=== PATIENT | female | born 1990 | race Two or more races ===

== ENCOUNTER 2018-03-04 10:31 | Emergency (ER) | payer SELFPAY ==
[2018-03-04 10:58] VITALS: BP 122/77; PULSE 93; TEMP 98.8; BMI 24.0
--- NOTE | 2018-03-04 12:29 | PDOC ---
History of Present Illness - General Chief Complaint: Ear Problem Stated Complaint: EAR PROBLEM Time Seen by Provider: 03/04/18 12:13 History Source: Patient Exam Limitations: No Limitations - History of Present Illness Initial Comments: 03/04/18 12:24 HISTORY OF PRESENT ILLNESS: 27-year-old woman who denies medical history presents emergency Department with 2 days of bilateral ear pain, sore throat, nasal congestion. Patient has been taking fluids but not any medications. Patient states the pain became increasingly worse today. She denies any discharge or hearing loss. She denies fevers, chills, chest pain, shortness of breath. No recent travel or sick contacts. PAST MEDICAL HISTORY: Denies past medical history SURGICAL HISTORY: Denies ALLERGIES: Iodine, PCN REVIEW OF SYSTEMS General/Constitutional: Denies fever or chills. Denies weakness, weight change. HEENT: Denies change in vision. Bilateral ear pain. Denies discharge. Denies hearing loss. +sore throat. +Nasal congestion. Cardiovascular: Denies chest pain or shortness of breath. Respiratory: Denies cough, wheezing, or hemoptysis. Gastrointestinal: Denies nausea, vomiting, diarrhea or constipation. Denies rectal bleeding. Genitourinary: Denies dysuria, frequency, or change in urination. Musculoskeletal: Denies joint or muscle swelling or pain. Denies neck or back pain. Skin and breasts: Denies rash or easy bruising. Neurologic: Denies headache, vertigo, loss of consciousness, or loss of sensation. Psychiatric: Denies depression or anxiety. Endocrine: Denies increased thirst. Denies abnormal weight change. Hematologic/Lymphatic: Denies anemia, easy bleeding, or history of blood clots. Allergic/Immunologic: Denies hives or skin allergy. Denies latex allergy. PHYSICAL EXAM General Appearance: Well-appearing, appropriately dressed. No apparent distress , no intoxication. HEENT: EOMI, PERRLA, normal voice. No conjunctival pallor. No photophobia, scleral icterus. TM with retractions bilaterally. Cobblestoning in the posterior OP. Neck: Supple. Trachea midline. No tenderness, rigidity, carotid bruit, stridor , lymphadenopathy, or thyromegaly. Respiratory/Chest: Lungs CTAB. No shortness of breath, chest tenderness, respiratory distress, accessory muscle use. No crackles, rales, rhonchi, stridor , wheezing, dullness Cardiovascular: RRR. S1, S2. No JVD, murmur, bradycardia, tachycardia. Vascular Pulses: Dorsalis-Pedis (R): 2+, Dorsalis-Pedis (L): 2+ Gastrointestinal/Abdominal: Normal bowel sounds. Abdomen soft, non-distended. No tenderness or rebound tenderness. No organomegaly, pulsatile mass, guarding, hernia, hepatomegaly, splenomegaly. Lymphatic: No adenopathy, tenderness. Musculoskeletal/Extremities: Normal inspection. FROM of all extremities, normal capillary refill. Pelvis Stable. No CVA tenderness. No tenderness to extremities, pedal edema, swelling, erythema or deformity. Integumentary: Appropriate color, dry, warm. 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 Fully oriented, alert. Appropriate mood/affect. Motor strength 5/5. No appreciable EOM palsy, facial droop or sensory deficit. Past History - Past Medical History Allergies/Adverse Reactions: Allergies Allergy/AdvReac Type Severity Reaction Status Date / Time iodine Allergy Verified 03/04/18 10:55 Penicillins Allergy Verified 03/04/18 10:55 Home Medications: Ambulatory Orders Ipratropium [place] 30 ml NS TID #1 bottle 03/04/18 CVA: No COPD: No CHF: No GI Disorders: Yes (LEFT PARTIAL KIDNEY) - Immunization History Immunization Up to Date: Yes - Suicide/Smoking/Psychosocial Hx Smoking History: Never smoked Hx Alcohol Use: No Drug/Substance Use Hx: No *Physical Exam - Vital Signs Last Vital Signs Temp Pulse Resp BP Pulse Ox 98.8 F 93 H 15 122/77 97 03/04/18 10:55 03/04/18 10:55 03/04/18 10:55 03/04/18 10:55 03/04/18 10:55 Medical Decision Making - Medical Decision Making 03/04/18 12:29 A/P: 27-year-old woman without medical history with 2 days of upper respiratory symptoms TMs retracted bilaterally. Cobblestoning noted in the posterior oropharynx. Oropharynx without erythema, exudates or lesions. No cervical lymphadenopathy noted Lungs clear to auscultation bilaterally Physical exam is consistent with a viral upper respiratory infection. Symptomatic treatment is been discussed with the patient. I'll give the patient prescription for Atrovent nasal spray to help with congestion. Patient verbalizes understanding of discharge instructions and is in agreement with plan and satisfied with the care received today. *DC/Admit/Observation/Transfer Diagnosis at time of Disposition: Upper respiratory infection, viral - Discharge Dispostion Disposition: HOME Condition at time of disposition: Stable Decision to Admit order: No - Prescriptions Prescriptions: Ipratropium [place] 30 ml NS TID #1 bottle - Referrals - Patient Instructions Additional Instructions: Rest, drink lots of fluids: Teas, water, soups, Pedialyte Saltwater gargles Steamy showers/seem to face break up mucus Avoid contact with others until fevers and cough resolved Lots of handwashing and good hygiene Continue [id number] medications for symptomatic relief Tylenol or Motrin for fever and pain Atrovent nasal spray 3 times a day as needed for congestion Followup with private physician in one to 2 days as needed Return to emergency department for worsened symptoms, fevers, dehydration - Post Discharge Activity Forms/Work/School Notes: Back to Work
== END 2018-03-04 12:34 | disposition home or self-care (01) ==
LOC: JERFT 10:31
DX: J06.9 Acute upper respiratory infection, unspecified (principal); B97.89 Other viral agents as the cause of diseases classified elsewhere
CPT/HCPCS: 99281-25